=== PATIENT | male | born 1960 | race Caucasian/White ===

== ENCOUNTER → 2021-08-16 | Outpatient (CLI) | payer MEDICARE, BC ==
[~2021-08-16] MED LIST: AMOXICILLIN 8751 TAB PO; CELEXA20 MG PO; DOXAZOSIN4 MG PO; FLOMAX0.4 MG PO; LEVOTHYROXIN0.125 MG PO; MULTIPLE VITAMI1 CAP PO
== END ==
LOC: RAD 12:55
DX: S92.335A Nondisplaced fracture of third metatarsal bone, left foot, initial encounter for closed fracture (principal); S92.345A Nondisplaced fracture of fourth metatarsal bone, left foot, initial encounter for closed fracture; W00.0XXA Fall on same level due to ice and snow, initial encounter

== ENCOUNTER → 2021-08-20 | Outpatient (CLI) | payer MEDICARE, BC | LOC: LAB 15:26 | DX: L03.019 Cellulitis of unspecified finger (principal); B35.6 Tinea cruris ==

== ENCOUNTER → 2021-10-13 | Outpatient (CLI) | payer MEDICARE, BC ==
[2021-10-13 14:08] LABS: BASO # 0.03 K/mm3 (0.02-0.10); EOS # 0.03 K/mm3 (0.04-0.40); EOS % 0.4 % (0.0-4.0); HEMATOCRIT 46.2 % (42.0-52.0); HEMOGLOBIN 15.3 g/dL (13.5-18.0); LYMPH# 2.11 K/mm3 (1.50-4.00); MEAN CELL VOLUME 106 fl (78-100); MEAN CORPUSCULAR HEMOGLOBIN 35 pg (27-31); MEAN CORPUSCULAR HGB CONC 33 g/dL (33-37); MEAN PLATELET VOLUME 9.3 fl (7.4-10.4); MONO # 0.55 K/mm3 (0.20-0.80); NEU # 3.95 K/mm3 (1.40-6.50); PLATELET COUNT 277 K/mm3 (130-400); RED BLOOD COUNT 4.38 M/mm3 (4.20-5.60); RED CELL DISTRIBUTION WIDTH 14.5 % (11.5-14.5); WHITE BLOOD COUNT 6.7 K/mm3 (4.8-10.8)
[2021-10-13 14:20] LABS: ALBUMIN 3.8 g/dL (3.5-5.0); POTASSIUM 4.2 mmol/L (3.5-5.1)
[2021-10-13 14:21] LABS: CALCIUM 9.1 mg/dL (8.3-10.5)
[2021-10-13 14:22] LABS: TOTAL PROTEIN 6.9 g/dL (6.4-8.3)
[2021-10-13 14:24] LABS: TOTAL BILIRUBIN 0.8 mg/dL (0.2-1.2)
== END ==
LOC: LAB 13:54
PROVIDERS: Family Medicine
DX: Z00.00 Encounter for general adult medical examination without abnormal findings (principal); E78.5 Hyperlipidemia, unspecified; E03.9 Hypothyroidism, unspecified; R41.3 Other amnesia; F32.1 Major depressive disorder, single episode, moderate

== ENCOUNTER → 2022-04-13 | Outpatient (CLI) | payer MEDICARE, BC | LOC: LAB 16:33 | DX: L03.019 Cellulitis of unspecified finger (principal) ==

== ENCOUNTER → 2023-03-02 | Outpatient (CLI) | payer MEDICARE, BC ==
[2023-03-02 13:13] LABS: BASO # 0.03 K/mm3 (0.02-0.10); EOS # 0.06 K/mm3 (0.04-0.40); EOS % 0.9 % (0.0-4.0); HEMATOCRIT 46.1 % (42.0-52.0); LYMPH# 1.49 K/mm3 (1.50-4.00); MEAN CELL VOLUME 106 fl (78-100); MEAN CORPUSCULAR HEMOGLOBIN 35 pg (27-31); MEAN CORPUSCULAR HGB CONC 33 g/dL (33-37); MEAN PLATELET VOLUME 9.4 fl (7.4-10.4); MONO # 0.71 K/mm3 (0.20-0.80); NEU # 4.03 K/mm3 (1.40-6.50); PLATELET COUNT 186 K/mm3 (130-400); RED BLOOD COUNT 4.34 M/mm3 (4.20-5.60); RED CELL DISTRIBUTION WIDTH 14.5 % (11.5-14.5); WHITE BLOOD COUNT 6.3 K/mm3 (4.8-10.8)
[2023-03-02 13:25] LABS: POTASSIUM 4.3 mmol/L (3.5-5.1)
[2023-03-02 13:26] LABS: ALBUMIN 3.9 g/dL (3.5-5.0)
[2023-03-02 13:27] LABS: CALCIUM 8.8 mg/dL (8.3-10.5)
[2023-03-02 13:28] LABS: TOTAL PROTEIN 6.6 g/dL (6.4-8.3)
[2023-03-02 13:30] LABS: TOTAL BILIRUBIN 0.7 mg/dL (0.2-1.2)
[2023-03-02 13:50] LABS: PH-URINE 7.5 (5.0 - 8.0); URINE APPEARANCE CLOUDY; URINE BILIRUBIN NEGATIVE (NEGATIVE); URINE BLOOD NEGATIVE (NEGATIVE); URINE COLOR YELLOW; URINE GLUCOSE NEGATIVE (NEGATIVE); URINE KETONE NN (NEGATIVE); URINE LEUKOCYTE ESTERASE NEGATIVE (NEGATIVE); URINE NITRATE NEGATIVE (NEGATIVE); URINE PROTEIN(semi-quant) TRACE (NEGATIVE); URINE UROBILINOGEN NORMAL (NORMAL); URINE WBC 0-1 /hpf (0-3)
[2023-03-03 06:51] LABS: HERPES SIMPLEX TYPE 1 IGG 0.22 Index (()); HERPES SIMPLEX TYPE 1 IGG INTP Negative (Negative); HERPES SIMPLEX TYPE 2 IGG 1.11 Index (())
[2023-03-06 21:35] LABS: FOLATE (FOLIC ACID) >20.0 ng/mL (2.0-20.0)
== END ==
LOC: LAB 12:46
PROVIDERS: Family Medicine
DX: Z00.00 Encounter for general adult medical examination without abnormal findings (principal); E78.5 Hyperlipidemia, unspecified; R33.9 Retention of urine, unspecified; R21 Rash and other nonspecific skin eruption; E03.9 Hypothyroidism, unspecified; B37.2 Candidiasis of skin and nail

== ENCOUNTER → 2024-04-02 | Outpatient (CLI) | payer MEDICARE, BC ==
[2024-04-02 15:53] LABS: BASO # 0.03 K/mm3 (0.02-0.10); EOS # 0.09 K/mm3 (0.04-0.40); EOS % 0.9 % (0.0-4.0); HEMATOCRIT 47.8 % (42.0-52.0); HEMOGLOBIN 15.8 g/dL (13.5-18.0); LYMPH# 1.71 K/mm3 (1.50-4.00); MEAN CELL VOLUME 106 fl (78-100); MEAN CORPUSCULAR HEMOGLOBIN 35 pg (27-31); MEAN CORPUSCULAR HGB CONC 33 g/dL (33-37); MEAN PLATELET VOLUME 9.2 fl (7.4-10.4); MONO # 0.93 K/mm3 (0.20-0.80); NEU # 7.51 K/mm3 (1.40-6.50); PLATELET COUNT 225 K/mm3 (130-400); RED CELL DISTRIBUTION WIDTH 14.6 % (11.5-14.5); WHITE BLOOD COUNT 10.3 K/mm3 (4.8-10.8)
[2024-04-02 16:04] LABS: CALCIUM 9.1 mg/dL (8.3-10.5)
[2024-04-02 16:05] LABS: TOTAL PROTEIN 7.3 g/dL (6.2-8.1)
[2024-04-02 16:07] LABS: TOTAL BILIRUBIN 0.6 mg/dL (0.2-1.2)
== END ==
LOC: LAB 15:26
PROVIDERS: Family Medicine
DX: Z12.5 Encounter for screening for malignant neoplasm of prostate (principal); I10 Essential (primary) hypertension; E78.5 Hyperlipidemia, unspecified; E03.9 Hypothyroidism, unspecified

== ENCOUNTER → 2024-07-01 | Day surgery (SDC) | payer MEDICARE, OTHER, BC ==
[~2024-07-01] MED LIST changes: +Lidocaine PF 2% (20 MG/ML) 5 ML VIAL ONE
== END ==
LOC: MSO 09:19
DX: Z12.11 Encounter for screening for malignant neoplasm of colon (principal); K63.5 Polyp of colon; K57.30 Diverticulosis of large intestine without perforation or abscess without bleeding; Q90.9 Down syndrome, unspecified
CPT/HCPCS: 00811; J2704; J7120